=== PATIENT | female | born 1995 | race Caucasian/White ===

== ENCOUNTER 2022-04-07 09:43 | Emergency (ER) | payer OTHER, SELFPAY ==
--- NOTE | 2022-04-07 09:53 | ED.URI ---
HPI - URI/Sore Throat General Chief Complaint: Upper Respiratory Infection Stated Complaint: CONGESTION/LOSING VOICE/TIRED Time Seen by Provider: 04/07/22 09:53 Source: patient and RN notes reviewed History of Present Illness HPI Narrative: Patient is a 27-year-old female who presents to urgent care with complaints of congestion, fatigue, voice loss and drainage since Thursday. Patient was seen in another urgent care on Thursday assuming she had strep, and tested negative. Patient also had a negative at home covid test. Patient has been taking ibuprofen at home. Patient's main concern is influenza in returning to work. No other acute complaints. No acute distress noted. Patient aware of the plan of care. Some parts of this dictation were generated by voice recognition software and may contain typographical and/or grammatical inaccuracies. Related Data Home Medications Medication Instructions Recorded Confirmed No Home Medications 04/07/22 04/07/22 Review of Systems Review of Systems: CONSTITUTIONAL: Denies fever, chills, or sweats. Reports of fatigue EYES: Denies visual changes, redness, or discharge. ENT: Reports of hi/, congestion, postnasal drainage CARDIOVASCULAR: Denies chest pain, palpitations, or edema. RESPIRATORY: Denies cough or dyspnea. GASTROINTESTINAL: Denies abdominal pain, nausea, vomiting, or diarrhea. GENITOURINARY: Denies dysuria or hematuria. SKIN: Denies rash or itching. MUSCULOSKELETAL: Denies back pain, joint pain, or myalgia. NEUROLOGIC: Denies headache, numbness, or weakness. All other systems reviewed are negative, except as documented in HPI. PMFSH Comments At the time of my signature, I reviewed and agree with the nursing past medical, surgical, social, and family history. There is no relevant family history pertinent to the patient complaint. Exam Narrative: GENERAL: This is a well-nourished, well-developed patient, in no apparent distress. HEAD: normocephalic, atraumatic. EYES: PERRL. Sclera clear/white. Vision is grossly intact. EARS: External ears normal, auditory canals clear and without drainage, TMs normal without perforation. Hearing grossly intact. NOSE: External nose normal with no obvious nasal discharge, nares without redness, clear rhinorrhea. THROAT: Mucous membranes moist, posterior pharynx clear. Moderate postnasal drainage with hoarse voice NECK: Neck supple, non-tender without lymphadenopathy, masses or thyromegaly. CARDIOVASCULAR: Regular rate and rhythm without murmurs, gallops, or rubs. RESPIRATORY: Clear to auscultation. Breath sounds equal bilaterally. No wheezes, rales, or rhonchi. SKIN: warm, intact with no suspicious lesions or rash, good texture and turgor. NEURO: awake, alert, and oriented to person, place and time. There were no obvious focal neurologic abnormalities. EXTREMITIES: No clubbing, cyanosis, or edema. Course Course Level of Care: Express Care Visit Vital Signs Vital signs: Vital Signs Temperature 97.4 F L 04/07/22 09:55 Pulse Rate 84 04/07/22 09:55 Respiratory Rate 18 04/07/22 09:55 Blood Pressure 125/88 04/07/22 09:55 Pulse Oximetry 98 04/07/22 09:55 Oxygen Delivery Room Air 04/07/22 09:55 Temperature 97.4 F L 04/07/22 09:55 Pulse Rate 84 04/07/22 09:55 Respiratory Rate 18 04/07/22 09:55 Blood Pressure 125/88 04/07/22 09:55 Pulse Oximetry 98 04/07/22 09:55 Oxygen Delivery Room Air 04/07/22 09:55 Reviewed MDM - URI/Sore Throat MDM Narrative Medical decision making narrative: Reviewed lab results with the patient. She is aware that her flu test was negative. Advised patient to increase her water intake, use a humidifier at night. Use a daily antihistamine such as Zyrtec/Claritin during the day and Benadryl prior to bedtime. Follow-up with your PCP within 2-5 days or for worsening symptoms failure to improve. Differential Diagnosis Differential diagnosis: Likely upper respiratory infection, ot
[2022-04-07 09:55] VITALS: BP 125/88; PULSE 84; RESP 18; TEMP 36.3; O2SAT 98
== END 2022-04-07 10:22 | disposition home or self-care (01) ==
PROVIDERS: Emergency Provider Nurse Practitioner Family
DX: J06.9 Acute upper respiratory infection, unspecified (principal)
CPT/HCPCS: 87804; 99213; G0463

== ENCOUNTER 2022-04-24 11:08 | Emergency (ER) | payer OTHER, SELFPAY ==
[2022-04-24 11:31] VITALS: BP 124/80; PULSE 78; RESP 16; TEMP 36.6; O2SAT 99
--- NOTE | 2022-04-24 11:47 | ED.URI ---
HPI - URI/Sore Throat General Chief Complaint: Upper Respiratory Infection Stated Complaint: Sore Throat, Coughing Time Seen by Provider: 04/24/22 11:47 Source: patient and RN notes reviewed Mode of arrival: ambulatory Limitations: no limitations History of Present Illness HPI Narrative: 27-year-old female presented for complaint of sinus pressure and congestion, cough, and fatigue intermittently over the last 3 weeks. She endorses temporary relief in symptoms. She is using multiple [id number] medications. She denies shortness of breath, wheezing, nausea, vomiting, diarrhea, fevers or chills. She denies sick contacts. MD elicited complaint: cough Related Data Home Medications Medication Instructions Recorded Confirmed phentermine 37.5 mg disintegrating mg PO 04/24/22 tablet Allergies Allergy/AdvReac Type Severity Reaction Status Date / Time No Known Allergies Allergy Verified 04/24/22 11:44 Review of Systems Review of Systems: ROS per HPI Exam Narrative: GENERAL: Ill-appearing, nontoxic EYES: PERRLA, conjunctivae clear ENT: Mucous membranes moist. TMs pearly villavicencio with dull light reflex bilaterally, right TM with clear effusion; no tragal tenderness. Oropharynx erythematous without lesions or exudate NECK: Supple. No lymphadenopathy CHEST: Clear to auscultation, breath sounds equal. No wheezing, rhonchi, rales, or stridor. No respiratory distress, speaks in full sentences. HEART: Regular rate and rhythm. No murmur heard. SKIN: Warm, dry, no rash. Course Course Emergency Course: Patient is aware of diagnosis, understands and agrees to treatment plan. Anticipatory guidance given. Patient agrees to follow-up as directed and is aware of reasons to seek care at the emergency department. Portions of this record may have been created with voice recognition software Level of Care: Express Care Visit Vital Signs Vital signs: Vital Signs Temperature 97.8 F 04/24/22 11:31 Pulse Rate 78 04/24/22 11:31 Respiratory Rate 16 04/24/22 11:31 Blood Pressure 124/80 04/24/22 11:31 Pulse Oximetry 99 04/24/22 11:31 Oxygen Delivery Room Air 04/24/22 11:31 Temperature 97.8 F 04/24/22 11:31 Pulse Rate 78 04/24/22 11:31 Respiratory Rate 16 04/24/22 11:31 Blood Pressure 124/80 04/24/22 11:31 Pulse Oximetry 99 04/24/22 11:31 Oxygen Delivery Room Air 04/24/22 11:31 reviewed MDM - URI/Sore Throat MDM Narrative Medical decision making narrative: Advised supportive measures and signs/symptoms to go to the ER. Pt is appropriate for outpt treatment and f/u. Differential Diagnosis Differential diagnosis: Likely upper respiratory infection, sinusitis and viral infection Discharge Plan Discharge Clinical Impression: Upper respiratory infection Patient Disposition: Home, Self-Care Condition: Stable Instructions: Antibiotic Form, Rhinosinusitis (ED) Additional Instructions: Take medication as directed Recommend Flonase spray and Zyrtec (or Claritin/Heidi) over the counter Cough syrup may cause drowsiness; avoid driving or take it at night time. Tylenol 1000mg every 8 hours as needed for pain Symptomatic treatment includes: rest, fluids, and increase humidity of the air at home. Follow up with your primary care provider in 1 week. Go to the ER for worsening symptoms or concerns. Prescriptions: New prednisone 20 mg tablet 40 mg PO DAILY 5 Days Qty: 10 0RF doxycycline hyclate 100 mg tablet 100 mg PO BID 5 Days Qty: 10 0RF No Action phentermine 37.5 mg Tablet,Disintegrating PO Follow-up/Referrals: PHYSICIAN,J[employer] MACHINE OPERATOR [Primary Care Provider] - Stand Alone Forms: Work/School Release IP Time of Disposition: 11:59
== END 2022-04-24 12:04 | disposition home or self-care (01) ==
PROVIDERS: Emergency Provider Nurse Practitioner Family
DX: J06.9 Acute upper respiratory infection, unspecified (principal)
CPT/HCPCS: 99213; G0463